=== PATIENT | male | born 1970 | race Caucasian/White ===

== ENCOUNTER → 2019-05-04 | Outpatient (CLI) | payer OTHER ==
--- NOTE | 2019-05-04 14:29 | RAD ---
Bilateral digital diagnostic mammogram. INDICATION: 48-year-old man with left breast swelling and tenderness. COMPARISON: None. TECHNIQUE: CC and MLO views of both breasts were obtained and reviewed with computer-aided detection. FINDINGS: Breast parenchyma is almost entirely fatty replaced. The right mammogram is negative. Left mammogram shows a flame-shaped subareolar density consistent with benign gynecomastia. No evidence of malignancy. No architectural distortion, suspicious calcifications or dominant mass. No skin thickening or nipple retraction. IMPRESSION: Benign mammographic findings consistent with left gynecomastia. Recommend clinical management. BI-RADS Category 2 Benign
== END | disposition home or self-care (01) ==
LOC: MAMMO 13:59
PROVIDERS: ATTEND Family Medicine
DX: N63.20 Unspecified lump in the left breast, unspecified quadrant (principal)
CPT/HCPCS: 77066

== ENCOUNTER → 2019-07-13 | Outpatient (CLI) | payer OTHER ==
--- NOTE | 2019-07-13 17:51 | RAD ---
3 views lumbar spine dated 07/13/2019. No comparison available. Clinical data indication: Back pain. FINDINGS: 3 views lumbar spine show normal sagittal alignment. Vertebral body heights are maintained. Mild endplate hypertrophic changes throughout. Mild arthrosis lower lumbar apophyseal joints. Acute osseous abnormality. IMPRESSION: 1. No acute radiographic abnormality. 2. Mild multilevel spondylosis. Electronically signed by: Dex Chavez MD (07/13/2019 5:48 PM) GINGER
== END | disposition home or self-care (01) ==
LOC: PMG 17:06
PROVIDERS: ATTEND Family Medicine
DX: M47.816 Spondylosis without myelopathy or radiculopathy, lumbar region (principal); M89.38 Hypertrophy of bone, other site; M12.88 Other specific arthropathies, not elsewhere classified, other specified site
CPT/HCPCS: 72100

== ENCOUNTER → 2020-01-26 | Outpatient (CLI) | payer OTHER | LOC: LAB 12:30 | PROVIDERS: ATTEND Family Medicine | DX: Z20.828 Contact with and (suspected) exposure to other viral communicable diseases (principal) | CPT/HCPCS: C9803; U0003 ==

== ENCOUNTER → 2020-05-24 | Outpatient (CLI) | payer OTHER ==
--- NOTE | 2020-05-24 17:32 | RAD ---
EXAMINATION: XR CHEST 2V CLINICAL HISTORY: Chest pain and tightness EXAM DATE/TIME: 05/24/2020 4:54 PM COMPARISON: None FINDINGS: Lines, Tubes, and Devices: None. Cardiomediastinal Silhouette: Normal heart size. Lungs and Pleura: No evidence of focal airspace consolidation or pleural effusion. Pulmonary vasculat ure unremarkable. Bones and Soft Tissues: Degenerative changes of the thoracic spine. IMPRESSION: No evidence of acute cardiopulmonary abnormality. Electronically signed by: Hernan Flores DO (05/24/2020 5:30 PM) [id number]
== END ==
LOC: PMG 16:39
PROVIDERS: ATTEND Family Medicine
DX: R07.89 Other chest pain (principal); M47.814 Spondylosis without myelopathy or radiculopathy, thoracic region
CPT/HCPCS: 71046